=== PATIENT | male | born 1960 | race Caucasian/White ===

== ENCOUNTER 2016-07-22 11:05 | Outpatient (CLI) | payer BC ==
[~2016-07-22] VITALS: Ht 188 cm; Wt 159.1 kg
--- NOTE | ~2016-07-22 | HEMODYNAMI ---
PATIENT:DEAN NAJERA MEDICAL RECORD: [id number] : 60 LOCATION:[facility] ADMISSION DATE: 07/22/16 Generatedon:07/22/201614:02 Patient name: DEAN NAJERA Patient #: [id number] SSN: : 1960 Date of study: 07/22/2016 Page: Of Hemodynamic Procedure Report Patient Data Patient Demographics Procedure consent was obtained First Name: DEAN Gender: Male Last Name: REINALDO : 1960 Patient #: [id number] Age: 56 year(s) Race: Additional ID: [id number] Contact details [address]: [address] [place] [address] State: [place] City: [place] Zip code: [address] Admission Admission Data Admission Date: 07/22/2016 Admission Time: 11:05 Arrival Date: 07/22/2016 Arrival Time: 13:00 Admit Source: Other Insurance Payor: Private health insurance Height (in.): 74 BSA: 2.73 (m2) Height (cm.): 187.96 BMI: 43.91 (kg/m2) Weight (lbs.): 342 Weight (kg.): 155.13 Lab Results Lab Result Date: 07/22/2016 Lab Result Time: 0:00 Biochemistry Name Units Result Min Max BUN mg/dl 20 --(----)*- 7 18 Creatinine mg/dl 1.2 --(---*)-- 0.6 1.3 CBC Name Units Result Min Max Hemoglobin g/dl 15.4 --(-*--)-- 13.5 17.5 Procedure Procedure Types Cath Procedure Diagnostic Procedure [facility] w/Coronaries PCI Procedure Coronary Stent Initial Miscellaneous Procedures Moderate Sedation up to 45 minutes Procedure Description Procedure Date Procedure Date: 07/22/2016 Procedure Start Time: 13:34 Procedure End Time: 13:58 Procedure Staff Name Function Berny Villalobos MD Performing Physician Livia Talbot RT Scrub Adam Kate RN Nurse Aliyah Reynaga RT Monitor Procedure Data Cath Procedure Fluoroscopy Diagnostic fluoroscopy Total fluoroscopy Time: 6.2 time: 6.2 min min Diagnostic fluoroscopy Total fluoroscopy dose: dose: 1648 mGy 1648 mGy Contrast Material Contrast Material Type Amount (ml) Isovue 300 129 Entry Location Entry Primary Successful Side Size Upsize Upsize Entry Closure [place] ccessful Closure Location (Fr) 1 (Fr) 2 (Fr) Remarks Device Remarks Radial Right 6 Fr Mechanical artery Short Compression Estimated blood loss: 5 ml Diagnostic catheters Device Type Used For End Catheter Placement Diagnostic Terumo Multi-vessel Optitorque 5Fr Allenton 4.5 Angiography catheter Procedure Complications No complications Procedure Medications Medication Administration Route Dosage Oxygen NC 2 l/min Lidocaine 2% added to field 20 Heparin Flush Bag added to field 2 bags (1000units/500ml NS) 0.9% NaCl I.V. 100 ml/hr Versed I.V. 1 mg Fentanyl I.V. 50 mcg Versed I.V. 1 mg Fentanyl I.V. 50 mcg Versed I.V. 1 mg Fentanyl I.V. 50 mcg Radial Cocktail I.A. 1 syringe (Verapomil 2mg/Nitro 400mcg/Heparin 1500units) Heparin Bolus I.V. 5000 units Integrilin (Bolus I.V. 11.3 ml 2mg/ml) Fentanyl I.V. 50 mcg Versed I.V. 1 mg Fentanyl I.V. 50 mcg Fentanyl I.V. 50 mcg Brilinta P.O. 180 mg Hemodynamics Rest BSA: 2.73 (m2) HGB: 15.4 (g/dl) O2 Consumption: Estimated: 325.37 (ml/min) O2 Co nsumption indexed: Estimated:119.18 (ml/min/m) Heart Rate: 72 (bpm) Pressure Samples Time Site Value (mmHg) Purpose Heart Use Rate(bpm) 13:36 LV 137/13,16 Snapshot 90 Gradients Valve Time Site Site Mean SEP/DFP Peak To Heart Use 1 2 (mmHg) (sec/min) Peak Rate (mmHg) (bpm) Aortic 13:36 LV AO 78 Snapshots Pre Cath Intra NCS Post Cath Vital Signs Time Heart Resp SPO2 etCO2 [id number] NIBP (mmHg) Rhythm Pain Sedation Rate (ipm) (%) (mmHg) (mmHg) Status Level (bpm) 13:19:09 76 26 99 0 0 184/96(151) NSR 0 (11) 10(A) , No pain 13:23:36 73 18 96 0 0 172/92(129) NSR 0 (11) 10(A) , No pain 13:28:08 82 20 95 0 0 166/86(133) NSR 0 (11) 10(A) , No pain 13:32:32 82 18 96 0 0 163/89(132) NSR 0 (11) 10(A) , No pain 13:38:12 86 13 95 0 0 152/85(117) NSR 0 (11) 9(A) , No pain 13:42:36 86 17 96 0 0 141/88(121) NSR 0 (11) 9(A) , No pain 13:47:00 81 15 95 0 0 152/82(111) NSR 0 (11) 9(A) , No pain 13:51:31 80 14 94 0 0 151/81(119) NSR 0 (11) 9(A) , No pain 13:55:57 82 16 96 0 0 165/88(120) NSR 0 (11) 10(A) , No pain Medications Time Medication Route Dose Verified Delivered Reason Note s Effectiveness by by 13:19:42 Oxygen NC 2 l/min Berny Medina used for St. Srini Kate RN procedure 13:19:49 Lidocaine 2% added 20ml Berny Berny for local to vial [facility] anesthetic field MD FRIEND 13:19:56 Heparin Flush added 2 bags Berny Arrieta used for Bag to [facility] procedure (1000units/500ml field MD FRIEND NS) 13:20:06 0.9% NaCl I.V. 100 Berny Buffie Per physician ml/hr St. Srini Kate RN, MD 13:26:01 Versed I.V. 1 mg Berny Buffie for sedation St. Srini Kate RN, MD 13:26:08 Fentanyl I.V. 50 mcg Berny Buffie for sedation St. Srini Kate RN, MD 13:31:24 Versed I.V. 1 mg Berny Buffie for sedation St. Srini Kate RN, MD 13:31:28 Fentanyl I.V. 50 mcg Berny Stephensonie for sedation St. Srini Kate RN, MD 13:33:59 Versed I.V. 1 mg Berny Buffie for sedation St. Srini Kate RN, MD 13:34:03 Fentanyl I.V. 50 mcg Berny Stephensonie for sedation St. Srini Kate RN, MD 13:35:06 Radial Cocktail I.A. 1 Berny Arrieta for (Verapomil syringe [facility] vasodilation 2mg/Nitro MD FRIEND 400mcg/Heparin 1500units) 13:40:31 Fentanyl I.V. 50 mcg Berny Medina for sedation St. Srini Kate RN, MD 13:40:40 Versed I.V. 1 mg Berny Medina for sedation St. Srini Kate RN, MD 13:43:04 Heparin Bolus I.V. 5000 Berny Medina for veri fied units St. Srini Kate RN anticoagulation with dr MD jiménez 13:45:36 Integrilin I.V. 11.3 ml Berny Stephensonie for Wast ed (Bolus 2mg/ml) St. Srini Kate RN antiplatelet 8.7 ml MD therapy of vial 13:48:32 Fentanyl I.V. 50 mcg Berny Medina for sedation St. Srini Kate RN, MD 13:52:41 Fentanyl I.V. 50 mcg Berny Medina for sedation St. Srini Kate RN, MD 13:57:50 Brilinta P.O. 180 mg Berny Medina for St. Srini Kate RN antiplatelet therapy Procedure Log Time Note 12:51:18 Informed consent obtained and on chart 12:51:59 Admit Source: Other 12:52:06 Patient Weight : 342 kg 12:52:38 Arrival Date: 07/22/2016 1:00:00 PM 12:52:56 Insurance Payor : Private health insurance 12:53:02 Patient Height : 74 cm 12:57:29 Diagnostic Cath Status : Elective 12:57:59 Adam Kate RN sent for patient. Start room use. 12:58:00 Time tracking: Regular hours 12:58:06 Plan of Care:Hemodynamics will remain stable., Cardiac rhythm will remain stable., Comfort level will be maintained., Respiratory function will remain adequate., Patient/ family verbilizes understanding of procedure., Procedure tolerated without complication., Recovers from procedure without complications.. 13:05:30 Patient received from Pre/Post Procedure Room to [facility] 1 Alert and oriented. Tansferred to table in Supine position. 13:05:32 Warm blankets applied, and charla hugger turned on for patient comfort. 13:05:32 Correct patient and procedure confirmed by team. 13:05:33 ECG and BP/O2 sat monitors applied to patient. 13:17:43 Baseline sample Acquired. 13:17:43 Vital chart was started 13:17:47 Rhythm: sinus rhythm 13:17:49 Full Disclosure recording started 13:18:03 H&P Date Dictated: 07/15/2016 Within 30 days and on chart., H&P Addendum completed by physician on day of procedure. (MUST COMPLETE FOR ALL OUTPATIENTS). 13:18:04 Pre-procedure instructions explained to patient. 13:18:04 Pre-op teaching completed and patient verbalized understanding. 13:18:06 Family in waiting room. 13:18:09 Patient NPO since Midnight. 13:18:19 Is the patient allergic to Iodine/contrast media? No. 13:18:20 Was the patient premedicated? No 13:18:26 Is patient on blood thinner?No 13:18:27 Patient diabetic? No. 13:18:31 Previous problem with sedation/anesthesia? No ? 13:18:33 Snore? Yes 13:18:34 Sleep apnea? Yes 13:18:35 Deviated septum? No 13:18:37 Opens mouth fully? Yes 13:18:38 Sticks out tongue? Yes 13:18:42 Airway obstruction? No ? 13:18:45 Dentures? No ? 13:18:49 Pre procedure: right dorsailis pedis pulse 1+ Palpable, but thready & weak; easily obliterated 13:18:51 Modified Jarad's test Radial < 7 seconds 13:18:53 Patient pain scale 0/10 ?. 13:18:59 IV patent on arrival in left forearm with 0.9% NaCl at [facility]. 13:19:42 Oxygen 2 l/min NC was administered by Adam Kate RN; used for procedure; 13:19:49 Lidocaine 2% 20ml vial added to field was administered by Berny Villalobos MD; for local anesthetic; 13:19:56 Heparin Flush Bag (1000units/500ml NS) 2 bags added to field was administered by Berny Villalobos MD; used for procedure; 13:20:06 0.9% NaCl 100 ml/hr I.V. was administered by Buffie Kate RN; Per physician; 13::53 Lab Result : BUN 20 mg/dl 13::53 Lab Result : Creatinine 1.2 mg/dl 13::53 Lab Result : Hemoglobin 15.4 g/dl 13::23 Lab results completed and on chart. 13::33 Right Radial & Right Groin area was prepped with chlora-prep and draped in sterile fashion 13::34 Alarms reviewed by R. N. 13::34 Sharps counted by scrub and verified by R.N. 13::36 Physician arrived 13::36 --------ALL STOP TIME OUT------ ::36 Final Timeout: patient, procedure, and site verified with staff and physician. All members of the team are in agreement. 13::39 Right Radial & Right Groin site verified by team. 13::42 Physical assessment completed. ASA score P 2 - A patient with mild systemic disease as per Berny Villalobos MD. 13::48 Sedation plan: IV Moderate Sedation Versed, Fentanyl 13:22:52 Use device set Radial Dx 13:22:53 Acist Syringe opened to sterile field. 13:22:53 Medline Cath Pack opened to sterile field. 13:22:53 Bag Decanter opened to sterile field. 13:22:54 Terumo 6Fr Slender Glidesheath opened to sterile field. 13:22:54 St Camacho 260cm J .035 wire opened to sterile field. 13:22:55 Acist Hand Control opened to sterile field. 13:22:55 Acist Manifold opened to sterile field. 13:22:55 Tegaderm 4 x 4 opened to sterile field. 13:22:56 MBrace Wrist Support opened to sterile field. 13:26:01 Versed 1 mg I.V. was administered by Adam Kate RN; for sedation; 13:26:08 Fentanyl 50 mcg I.V. was administered by Adam Kate RN; for sedation; 13:31:24 Versed 1 mg I.V. was administered by Adam Kate RN; for sedation; 13:31:28 Fentanyl 50 mcg I.V. was administered by Adam Kate RN; for sedation; 13:33:59 Versed 1 mg I.V. was administered by Adam Kate RN; for sedation; 13:34:03 Fentanyl 50 mcg I.V. was administered by Adam Kate RN; for sedation; 13:34:32 Procedure started. 13:34:36 Local anesthetic to right radial artery with Lidocaine 2% by Berny Villalobos MD.INITIAL ACCESS ONLY 13:34:45 A 6 Fr Short sheath was inserted into the Right Radial artery 13:35:01 A Diagnostic Terumo Optitorque 5Fr [place] 4.5 catheter was advanced over the wire and used for Multi-vessel Angiography. 13:35:06 Radial Cocktail (Verapomil 2mg/Nitro 400mcg/Heparin 1500units) 1 syringe I.A. was administered by Berny Villalobos MD; for vasodilation; 13:35:12 Zero performed for pressure channel P1 13:36:23 LV hemodynamics recorded. 13:36:24 LV gram done using HAGAN 13:36:27 Injector settings: Ml/sec: 5, Volume: 15, 13:36:35 EF : 55 % 13:36:54 LCA angiography performed. 13:37:13 Injector settings: Ml/sec: 3, Volume: 6, 13:39:17 RCA angiography performed. 13:39:28 Injector settings: Ml/sec: 3, Volume: 6, 13:39:58 Catheter removed. 13:39:59 Proceeding to intervention. 13:40:18 [employer] BasixCompak Inflation Kit opened to sterile field. 13:40:19 Fitzpatrick Whisper J 300cm 0.014 guide wire opened to sterile field. 13:40:19 Medtronic Launcher 6Fr HS I guide catheter opened to sterile field. 13:40:31 Fentanyl 50 mcg I.V. was administered by Adam Kate RN; for sedation; 13:40:39 6 Fr hs 1 guide catheter was inserted over the wire 13:40:40 Versed 1 mg I.V. was administered by Adam Kate RN; for sedation; 13:42:10 Guide Catheter removed. damaged. 13:42:18 Medtronic Launcher 6Fr HS I guide catheter opened to sterile field. 13:42:19 6 Fr hs1 guide catheter was inserted over the wire 13:43:04 Heparin Bolus 5000 units I.V. was administered by Adam Kate RN; for anticoagulation; verified with dr jiménez 13:44:40 Guide Catheter removed. unable to cannulate vessel. 13:45:00 Medtronic Launcher 6Fr AR 2.0 guide catheter opened to sterile field. 13:45:36 Integrilin (Bolus 2mg/ml) 11.3 ml I.V. was administered by Adam Kate RN; for antiplatelet therapy; Wasted 8.7 ml of vial 13:46:14 6 Fr ar 2 guide catheter was inserted over the wire 13:46:24 whisper wire advanced. 13:48:32 Fentanyl 50 mcg I.V. was administered by Adam Kate RN; for sedation; 13:49:40 Inflation number: 1 A VaultLogix [place] 3.0 X 15 balloon was prepped and advanced across the Dist RCA, then inflated to 10 LALIT for 0:30 (min:sec). 13:50:11 Balloon removed over the wire. 13:52:41 Fentanyl 50 mcg I.V. was administered by Adam Kate RN; for sedation; 13:53:45 Inflation Number: 2 A BioMCNtronic Integrity 3.0 X 22 stent was prepped and advanced across the Dist RCA. The stent was deployed at 14 LALIT for 0:30 (min:sec). 13:54:07 Stent catheter was removed intact over wire. 13:54:08 Wire removed. 13:54:08 Guide catheter removed. 13:55:37 Terumo TR Band Large opened to sterile field. 13:55:49 Sheath removed intact; hemostasis achieved with Mechanical Compression to the Right Radial artery. 13:55:52 Procedure ended.(Physican Out) 13:55:58 Fluoroscopy time 06.20 minutes. 13:56:07 Fluoroscopy dose: 1648 mGy 13:56:07 Flurop Dose total: 1648 13:56:15 Contrast amount:Isovue 300 129ml. 13:56:17 Sharps counted by scrub and verified by R.N. 13:56:19 TR band inflated with 10cc of air. 13:56:22 Insertion/operative site no bleeding no hematoma. 13:56:29 Post right radial artery:stable 13:56:30 Post Procedure Pulses reassessed and unchanged 13:56:34 Post procedure rhythm: unchanged. 13:57:50 Brilinta 180 mg P.O. was administered by Adam Kate RN; for antiplatelet therapy; 13:57:56 Estimated blood loss: 5 ml 13:57:58 Post procedure instruction explained to patient.Patient verbalizes understanding. 13:57:58 Patient needs reinforcement of post procedure teaching. 13:58:22 Procedure type changed to Cath procedure, Diagnostic procedure, LHC, LHC w/Coronaries, PCI procedure, Coronary Stent Initial, Miscellaneous Procedures, Moderate Sedation up to 45 minutes 13:58:24 Procedure and supply charges have been captured, reviewed, submitted and are correct. 13:58:29 Procedure Complication : No complications 13:58:31 Vital chart was stopped 13:58:32 See physician's report for complete and final results. 13:58:36 Report given to Pre/Post Procedure Room. 13:58:39 Patient transfered to Pre/Post Procedure Room with Stretcher. 13:58:42 Procedure ended. 13:58:42 Full Disclosure recording stopped 13:58:53 ACC-PCI Only Patient was given prescriptions, or instructed by Berny Villalobos MD to start/continue the following medications upon discharge: Brilinta 13:58:55 End room use (Document Last) Intervention Summary Intervention Notes Time ActionType Lesion and Equipment Action# Pressure Duration Attributes Used 13:49:40 Inflate Dist RCA [place] 1 10 00:30 balloon Sci [place] 3.0 X 15 balloon 13:53:45 [address] stent Dist RCA Medtronic 2 14 00:30 Integrity 3.0 X 22 stent Device Usage Item Name Manufacture Quantity Catalog Number Hospital Part Current Mini mal Lot# / Charge Number Stock Stock Serial# Code Acist Acist 1 [id number] 661716 810423 180536 20 Syringe Medical Systems Inc Medline Cardinal 1 [id number] 810290 60684 340714 5 Cath Pack Health Bag Microtek 1 472242 04198 377320 5 DecAppFirst Medical Inc. Terumo 6Fr Terumo 1 [id number] 152401 961276 304824 [address] St Camacho 1 007398 406275 392494 408671 30 260cm J .035 wire Acist Hand Acist 1 47104 318978 134898 887469 5 Control Medical Systems Inc Acist Acist 1 98174 003267 007653 260557 5 SimpleCrew Medical Systems Inc Tegaderm 4 3M 1 1626W 103639 550951 341780 5 x 4 MBrace Advanced 1 140-0250-00 172862 33475 161963 5 Wrist Vascular Support Dynamics Diagnostic Terumo 1 31-0457 607745 457181 782411 5 Terumo Optitorque 5Fr [place] 4.5 catheter [facility] 1 [id number] 805578 070061 435149 15 BasixCompak Medical Inflation Kit Fitzpatrick Fitzpatrick 1 [id number] 265879 179428 642473 5 Whisper J Vascular 300cm 0.014 guide wire Medtronic Medtronic 2 [id number] 199720 08772 322958 1 Launcher 6Fr HS I guide catheter Medtronic Medtronic 1 [id number] 915848 60931 583731 1 Launcher 6Fr [place] 2.0 guide catheter [place] Sci [place] 1 [id number] 827971 312033 695483 1 COUPIES GmbH 3.0 X 15 balloon Medtronic Medtronic 1 [id number] 073471 717536 2 [id number] Integrity 3.0 X 22 stent Terumo TR Terumo 1 [id number] 934629 118617 507669 40 Band Large Signature Audit [place] Stage Time Signature Unsigned Intra-Procedure 07/22/2016 Aliyah Reynaga 2:02:45 PM RT(R) Signatures Monitor : Aliyah Reynaga RT Signature : Date : Time : [id number] [place] [address]
[~2016-07-22 11:05] MED LIST: BRILINTA90 MG PO; HYDROCHLOROTH12.5 M1 PO; HYDROCODONE-APA1 TAB PO; METOPROLOL TART50 MG PO; NITROSTAT0.4 MG SL; ORAPRED ODT10 MG/TAB PO; ZANAFLEX4 MG PO
[2016-07-22] MEDS ORDERED: NEURONTIN 300300 MG PO (11:34)
[2016-07-22] MEDS ORDERED: NAPROSYN500 MG PO (11:35)
[2016-07-22 11:49] VITALS: BP 168/87; Ht 188 cm; Wt 159.1 kg
[2016-07-22 11:52] LABS: BASOPHILS 0.4 % (0-2); EOSINOPHILS 5.7 % (0-7); HEMATOCRIT 45.6 % (42.0-54.0); HEMOGLOBIN 15.4 g/dL (13.5-17.5); IMMATURE GRANULOCYTES 0.2 % (0-5); MCH 31.6 pg (26.0-34.0); MCHC 33.8 g/dL (31.0-37.0); MCV 93.6 fL (80.0-100.0); MEAN PLATELET VOLUME 9.4 fL (7.4-10.4); MONOCYTES 7.9 % (2-11); NEUTROPHILS 52.8 % (40-80); PLATELET COUNT 312 10x3/uL (130-400); RBC 4.87 10x6/uL (4.20-6.10); RDW 13.1 % (11.5-14.5); WBC 10.7 10x3/uL (4.8-10.8)
[2016-07-22 12:05] LABS: ANION GAP 13.9 mmol/L (8-16); CALCIUM 9.6 mg/dL (8.5-10.1); CARBON DIOXIDE 26.2 mmol/L (21.0-32.0); CREATININE - SERUM 1.2 mg/dL (0.6-1.3); POTASSIUM - SERUM 4.1 mmol/L (3.5-5.1)
--- NOTE | 2016-07-22 14:31 | NUR ---
1410 RECEIVED PT FROM OPEN CLAIMS REPRESENTATIVE. PT IS DROWSY, DENIES ANY C/O CHEST PAIN OR NAUSEA. IV PATENT. TR BAND CDI WITH NO BLEEDING OR HEMATOMA NOTED. WRIST IMMOBILIZER IN PLACE. FINGERS WARM TO TOUCH, CAP REFILL IS BRISK. PT DENIES ANY N/V DEFICIT TO HAND. CALL LIGHT IN REACH, PT INSTRUCTED TO CALL FOR NEEDS. 1425 WATER AND SANDWICH TRAY SERVED. PT DENIES ANY C/O. TR BAND IS CDI, NO BLEEDING OR HEMATOMA NOTED. FAMILY AT BEDSIDE.
--- NOTE | 2016-07-22 14:59 | NUR ---
1505 PT HAS TOLERATED SANDWICH AND PO FLUIDS WITH NO C/O. TR BAND TO RIGHT WRIST IS CDI, NO BLEEDING OR HEMATOMA NOTED. AT BEDSIDE, CALL LIGHT IN REACH, PT INSTRUCTED TO CALL FOR NEEDS.
[2016-07-22] MEDS ORDERED: BAYER CHEWABLE81 MG PO (15:14)
[2016-07-22] MEDS ORDERED: BRILINTA90 MG PO (15:14)
--- NOTE | 2016-07-22 15:35 | NUR ---
1530 DENIES ANY C/O. TR BAND IS CDI TO RIGHT WRIST, NO BLEEDING OR HEMATOMA NOTED. CAP REFILL IS BRISK, FINGERS WARM TO TOUCH. CALL LIGHT IN REACH, AT BEDSIDE.
--- NOTE | 2016-07-22 16:22 | NUR ---
1620 PT SLEEPING, TR BAND CDI, NO BLEEDING OR HEMATOMA NOTED. AT BEDSIDE. SINUS RHYTHM 72.
--- NOTE | 2016-07-22 16:51 | NUR ---
1650 PT VOIDED 800 CC CLEAR YELLOW URINE IN URINAL. TR BAND CDI, NO BLEEDING OR HEMATOMA NOTED. AT BEDSIDE. PT DENIES NEEDS AT THIS TIME.
--- NOTE | 2016-07-22 17:02 | NUR ---
1700 TR BAND DEFLATION BEGUN, NO BLEEDING OR HEMATOMA NOTED. PT DENIES ANY C/O.
--- NOTE | 2016-07-22 17:58 | NUR ---
1755 TR BAND IS OFF, 2X2 DRESSING AND TEGADERM CDI. IV HAS BEEN DC'D WITH CATH INTACT. REVIEWED DC INSTRUCTIONS WITH PT WHO VERBALIZES UNDERSTANDING. BRILENTA PRESCRIPTION AND STENT CARD TO PATIENT. 1800 PT DRESSED FOR DC. DRESSING TO RIGHT WRIST REMAINS CDI, WRIST IMMOBILIZER IN PLACE. PT DENIES ANY C/O UPON DC. PT ESCORTED TO PRIVATE AUTO VIA WC BY STAFF WITH DRIVING HIM HOME.
--- NOTE | 2016-07-24 10:00 | OP ---
PATIENT NAME: DEAN NAJERA MEDICAL RECORD: [id number] :60 LOCATION:D.CAT ADMISSION DATE: SURGEON: HARMONY SALVADOR MD DATE OF OPERATION: 07/22/2016 PROCEDURE: Left heart catheterization, selective coronary angiography, right radial approach. CATHETERS: A 5-Vincentian sheath, 5/4 left and right Judah, 5/4 pig. The procedure was tolerated and the patient returned to [facility]. Sheath removed. Adequate hemostasis was obtained. FINDINGS: Left ventriculography in 30-degree HAGAN view: Normal wall motion, normal systolic function. CORONARY ANATOMY: Left main: Left main is free of disease. LAD: LAD is free of disease in the diagonal system. CIRCUMFLEX: Circumflex has a distal stent with about a 70% stenosis, a smallish vessel. RIGHT CORONARY ARTERY: The mid portion of the PDA shows basically subtotalled stenosis. PLAN: Intervention of the right momentarily. DESCRIPTION: A 5-Vincentian sheath was changed for a 6-Vincentian sheath. An AR guiding catheter provided excellent guide catheter support followed by a 300 cm [place] XT wire was placed across the site occluded PDA down this portion of vessel. Pre-deployment balloon was a 3.0 x 15 mm [place] balloon up to 10 atmospheres. Next, a 22-mm Integrity nondrug-eluting stent was inflated up to 14 atmospheres for 45 seconds. Final injection shows excellent resolution of 90+ percent stenosis and no significant residual. JOHANA flow was 3 throughout the procedure. Integrilin was used during the case. Sheath was closed with TR band. TRANSINT:[id number] Voice Confirmation ID: [id number] DOCUMENT ID: [id number] HARMONY SALVADOR MD at 1000 CC: [id number] DICTATION DATE: 07/22/16 1415 HARNESS MENDER: 07/23/16 0007 DEP CLI 07/22/16 [facility] [address] [place] [address]
== END 2016-07-22 18:00 | disposition home or self-care (01) ==
LOC: D.CATH 11:05
PROVIDERS: Internal Medicine Interventional Cardiology
DX: I25.119 Atherosclerotic heart disease of native coronary artery with unspecified angina pectoris (principal)